=== PATIENT | male | born 1960 | race Caucasian/White ===

== ENCOUNTER 2017-04-07 05:31 | Day surgery (SDC) | payer OTHER ==
[2017-04-04 12:37] VITALS: BMI 40.4
[2017-04-07] VITALS (13 sets, daily range): BP systolic 113–158; BP diastolic 66–92; PULSE 58–80; RESP 11–23; Ht 182.9 cm; Wt 140.4 kg
[~2017-04-07] VITALS: Ht 182.9 cm; Wt 140.4 kg
[2017-04-07] MEDS ORDERED: CEFAZOLIN 2 GM/50 ML (PMX) 50 ML IVPB ONE (06:00)
[2017-04-07] MEDS ORDERED: LIDOCAINE 1% (STERILE-PAK) 30 ML INJ ONE (06:53)
[2017-04-07] MEDS ORDERED: POLYMYXIN/BACITRACIN 1L IRRIG ONE (06:53)
[2017-04-07] MEDS ORDERED: BUPIVACAINE 0.5% (SDV) 30 ML INJ ONE (06:53)
[2017-04-07] MEDS ORDERED: METOCLOPRAMIDE 10 MG INJ ONE (07:00)
[2017-04-07] MEDS ORDERED: ETOMIDATE 20 MG INJ ONE ×2 (07:28→07:38)
[2017-04-07] MEDS ORDERED: KETOROLAC 30 MG INJ ONE (07:28)
[2017-04-07] MEDS ORDERED: ROCURONIUM 50 MG INJ ONE (07:28)
[2017-04-07] MEDS ORDERED: MIDAZOLAM 1 MG/ML 2 ML INJ ONE (07:28)
[2017-04-07] MEDS ORDERED: ROPIVACAINE 0.5 % 30 ML VIAL ONE (07:31)
[2017-04-07] MEDS ORDERED: VIT D3 (07:34)
[2017-04-07] MEDS ORDERED: BUPR150T6 PO (07:34)
[2017-04-07] MEDS ORDERED: SERT-165 PO (07:34)
--- NOTE | 2017-04-07 07:34 | HPN ---
Date/Time of Note Date/Time of Note DATE: 04/07/17 TIME: 07:34 Interval H&P Admission Note Pt. seen H&P reviewed: No system changes EMANUEL ANDRES DPM April 07, 2017 07:34
[2017-04-07] MEDS ORDERED: FENTAnyl 50 MCG/ML VIAL ONE (07:36)
[2017-04-07] MEDS ORDERED: ONDANSETRON 4 MG INJ IV PRN (08:30)
[2017-04-07] MEDS ORDERED: METOCLOPRAMIDE 10 MG INJ IV PRN (08:30)
[2017-04-07] MEDS ORDERED: OXYCODONE/ACETAMINOPHEN (5/325) TAB PO PRN ×2 (08:30)
[2017-04-07] MEDS ORDERED: LABETALOL HCL 20MG INJ IV PRN (08:30)
[2017-04-07] MEDS ORDERED: ALBUTEROL 0.083% (NEB) 2.5 MG/3 ML AMP HHN ONE (08:30)
[2017-04-07] MEDS ORDERED: DIPHENHYDRAMINE 50 MG INJ IV PRN (08:30)
[2017-04-07] MEDS ORDERED: HYDROmorphONE (0.2 MG/ML) 10ML SYG IV PRN ×3 (08:30)
[2017-04-07] MEDS ORDERED: MEPERIDINE 25 MG INJ IV PRN (08:30)
[2017-04-07] MEDS ORDERED: hydrALAzine 20 MG INJ IV PRN (08:30)
[2017-04-07] MEDS ORDERED: GLYCOPYRROLATE 0.4 MG INJ ONE (09:21)
[2017-04-07] MEDS ORDERED: NEOSTIGMINE 3 MG/3 ML SYRINGE ONE (09:21)
[2017-04-07] MEDS ORDERED: HYDROCODONE/APAP (10/325) TAB PO PRN (09:30)
[2017-04-07] MEDS ORDERED: CEFAZOLIN 1 GM INJ ONE (09:56)
--- NOTE | 2017-04-07 15:36 | RADRPT ---
PROCEDURE: XR Right Foot. CLINICAL INDICATION: Right foot pain. TECHNIQUE: Three views. Frontal, lateral, and oblique. COMPARISON: None. FINDINGS: Bone detail is obscured by the overlying posterior splint. There is no obvious fracture or dislocat ion. The soft tissues are normal. Articular surfaces are intact. There is a small plantar calcaneal spur. There is no lytic or blastic lesion. IMPRESSION: 1. Bone detail obscured due to the overlying splint. 2. No obvious fracture or dislocation. 3. Small plantar calcaneal spur. RPTAT: QQ .Vince Long MD, Date Time Electronically viewed and signed by .Vince Long MD, on 04/07/2017 15:35 .R/
== END 2017-04-07 12:25 | disposition home or self-care (01) ==
LOC: SDS 05:31
PROVIDERS: ATTEND Podiatrist Foot & Ankle Surgery
DX: M21.6X1 Other acquired deformities of right foot (principal); E66.01 Morbid (severe) obesity due to excess calories; Z68.41 Body mass index [BMI] 40.0-44.9, adult
CPT/HCPCS: 28118; 73630; 88304; 88311; 94664; J0690; J1885; J2250; J2710; J2765; J2795; J3010; Z7512; Z7610